=== PATIENT | female | born 2000 | race American Indian/Alaskan Native ===

== ENCOUNTER 2019-08-01 07:33 | Emergency (ER) | payer MEDICAID ==
[2019-08-01 07:51] VITALS: BP 126/79
--- NOTE | 2019-08-01 10:06 | Emergency Department Report ---
ED HPI - General Chief complaint: Vaginal Bleeding Stated complaint: 8WKS /BLEEDING/ABD PAIN Time Seen by Provider: 08/01/19 10:05 Source: patient Mode of arrival: Ambulatory Limitations: No Limitations - History of Present Illness Initial comments: 18 yo G2 AA female comes to ER with vag bleeding in preg. LMP mid Nov. Here with mother. "small amount bleeding" per pt. No pain. - Related Data Previous Rx's Medication Instructions Recorded Last Taken Type Ondansetron [Zofran Odt] 4 mg PO Q8HR PRN #10 tab.rapdis 08/01/19 Unknown Rx Allergies Allergy/AdvReac Type Severity Reaction Status Date / Time No Known Allergies Allergy Unverified 08/01/19 07:50 ED Review of Systems ROS: Stated complaint: 8WKS /BLEEDING/ABD PAIN Other details as noted in HPI Comment: All other systems reviewed and negative ED Past Medical Hx - Past Medical History Previous Medical History?: No - Surgical History Past Surgical History?: No - Family History Family history: no significant - Social History Smoking Status: Never Smoker Substance Use Type: None - Medications Home Medications: Home Medications Medication Instructions Recorded Confirmed Last Taken Type Ondansetron [Zofran Odt] 4 mg PO Q8HR PRN #10 tab.rapdis 08/01/19 Unknown Rx ED Physical Exam - General Limitations: No Limitations General appearance: alert, in no apparent distress - Head Head exam: Present: atraumatic, normocephalic - Eye Eye exam: Present: normal appearance - ENT ENT exam: Present: mucous membranes moist - Neck Neck exam: Present: normal inspection - Respiratory Respiratory exam: Present: normal lung sounds bilaterally. Absent: respiratory distress - Cardiovascular Cardiovascular Exam: Present: regular rate, normal rhythm. Absent: systolic murmur, diastolic murmur, rubs, gallop - GI/Abdominal GI/Abdominal exam: Present: soft, normal bowel sounds - Extremities Exam Extremities exam: Present: normal inspection - Back Exam Back exam: Present: normal inspection - Neurological Exam Neurological exam: Present: alert, oriented X3 - Psychiatric Psychiatric exam: Present: normal affect, normal mood - Skin Skin exam: Present: warm, dry, intact, normal color. Absent: rash ED Course Vital Signs 08/01/19 07:49 Temperature 97.9 F Pulse Rate 83 Respiratory 16 Rate Blood Pressure 126/79 O2 Sat by Pulse 96 Oximetry ED Medical Decision Making - Lab Data Result diagrams: 08/01/19 10:47 08/01/19 10:47 - Radiology Data Radiology results: report reviewed, image reviewed - Medical Decision Making Labs 08/01/19 08/01/19 08/01/19 08:06 10:47 10:47 WBC 6.0 RBC 4.25 Hgb 12.1 Hct 35.6 MCV 84 MCH 28 MCHC 34 RDW 16.2 H Plt Count 310 Sodium 137 Potassium 4.0 Chloride 101.7 Carbon Dioxide 20 L Anion Gap 19 BUN 7 Creatinine 0.5 L Estimated GFR > 60 BUN/Creatinine Ratio 14 Glucose 86 Calcium 9.1 HCG, Quant 30210 H Blood Type Ord Rhogam Gestat Weeks 08/01/19 10:47 WBC RBC Hgb Hct MCV MCH MCHC RDW Plt Count Sodium Potassium Chloride Carbon Dioxide Anion Gap BUN Creatinine Estimated GFR BUN/Creatinine Ratio Glucose Calcium HCG, Quant Blood Type AB POSITIVE Ord Rhogam Gestat Rh pos Vital Signs 08/01/19 07:49 Temperature 97.9 F Pulse Rate 83 Respiratory 16 Rate Blood Pressure 126/79 O2 Sat by Pulse 96 Oximetry us noted rh pos non ill non toxic wants to know "timing" ambulatory taking PO dc home with obgyn follow up in 48hours for interval exam. Pt and mother verbalize understanding. - Differential Diagnosis ro ectopic/AB Critical care attestation.: If time is entered above; I have spent that time in minutes in the direct care of this critically ill patient, excluding procedure time. ED Disposition Clinical Impression: , Vaginal bleeding during Disposition: DC-01 TO HOME OR SELFCARE Is pt being admited?: No Does the pt Need Aspirin: No Condition: Stable Instructions: Threatened Miscarriage (ED) Additional Instructions: tylenol for pain zofran for nausea take a daily over the counter vitamin pelvic rest until seen by obgyn no sex avoid alcohol/cig. hydrate well Prescriptions: Ondansetron [Zofran Odt] 4 mg PO Q8HR PRN #10 tab.rapdis PRN Reason: Vomiting Referrals: PRIMARY CARE, [Primary Care Provider] - 3-5 Days EZEQUIEL LOPEZ MD [Staff Physician] - 3-5 Days Forms: Accompanied Note, Work/School Release Form(ED) Time of Disposition: 12:08
[2019-08-01 11:12] LABS: Hematocrit 35.6 % (30.3-42.9); Hemoglobin 12.1 gm/dl (10.1-14.3); Mean Corpuscular HGB Conc 34 % (30-34); Mean Corpuscular Volume 84 fl (79-97); Platelet Count 310 K/mm3 (140-440); Red Blood Count 4.25 M/mm3 (3.65-5.03); Red Cell Distribution Width 16.2 % (13.2-15.2)
[2019-08-01 11:33] LABS: BUN/Creatinine Ratio 14; Blood Urea Nitrogen 7 mg/dL (7-17); Calcium 9.1 mg/dL (8.4-10.2); Hemolysis Index 6
--- NOTE | 2019-08-01 12:34 | Ultrasound Report ---
OB Ultrasound HISTORY: bleeding, cramping, hx ectopic. TECHNIQUE: Grayscale and color Doppler imaging performed. COMPARISON: None FINDINGS: Transabdominal and endovaginal exam was performed. Uterus measures 9.4 x 5.9 x 7.1 cm and contains an intrauterine gestation with crown-rump length of 1 .9 cm corresponding with an EGA of 8 weeks and 3 days. There is a small yolk sac as well. No free flu id. Heart rate is 168 bpm. Both ovaries are normal in size with a simple cyst on the left measuring 2 .8 cm and a complex probable functional cyst on the right measuring 2.3 cm. No free fluid identified. IMPRESSION: 1. Single viable intrauterine gestation as above. 2. Complex right ovarian cyst, likely functional. Signer Name: Abelino Cantu MD Signed: 08/01/2019 12:29 PM Workstation Name: [id number]
== END 2019-08-01 12:15 | disposition home or self-care (01) ==
LOC: ED 07:33
DX: O20.8 Other hemorrhage in early pregnancy (principal)
CPT/HCPCS: 36415; 76801; 76817; 80048; 84702; 85027; 86900; 86901